=== PATIENT | female | born 1955 | race Caucasian/White ===

== ENCOUNTER 2018-02-27 08:56 | Day surgery (SDC) | payer BC ==
[~2018-02-27] VITALS: Ht 157.5 cm; Wt 76.6 kg
[~2018-02-27 08:56] MED LIST: CINNAMON500 MG PO; COZAAR100 MG PO; FISH OIL 1,0001 EA10 PO; HYDROCHLOROTHIA25 MG PO; MAGNESIUM400 M1 PO; NEXIUM40 MG PO; OMEPRAZOLE40 M1 PO; PROBIOTIC1 EAC4 PO; ZOLOFT100 MG PO; [UNRECOGNIZED DRUG - REMARK]
[2018-02-27 09:12] VITALS: BP 124/66
[2018-02-27] MEDS ORDERED: NORCO 5/3251 TABLET PO (12:02)
[2018-02-27 13:09] VITALS: BP 149/70
[2018-02-27 14:02] VITALS: BP 148/78
== END 2018-02-27 14:30 | disposition home or self-care (01) ==
LOC: SDC 08:56
DX: K80.10 Calculus of gallbladder with chronic cholecystitis without obstruction (principal); Z90.710 Acquired absence of both cervix and uterus; I10 Essential (primary) hypertension; F32.9 Major depressive disorder, single episode, unspecified; F41.1 Generalized anxiety disorder; M19.90 Unspecified osteoarthritis, unspecified site; E78.00 Pure hypercholesterolemia, unspecified; J45.909 Unspecified asthma, uncomplicated; Z88.8 Allergy status to other drugs, medicaments and biological substances; Z80.0 Family history of malignant neoplasm of digestive organs; Z80.1 Family history of malignant neoplasm of trachea, bronchus and lung; Z83.3 Family history of diabetes mellitus; Z82.49 Family history of ischemic heart disease and other diseases of the circulatory system; G43.909 Migraine, unspecified, not intractable, without status migrainosus
CPT/HCPCS: 74300; 87641; 88304; 93005; J0131; J1100; J1885; J2250; J2405; J2710; J2765; J7643; Q0175; S0020; S0074